=== PATIENT | female | born 1985 | race Two or more races ===

== ENCOUNTER 2017-03-25 23:10 | Emergency (ER) | payer OTHER ==
[~2017-03-25] VITALS: Ht 170.2 cm; Wt 90.7 kg
--- NOTE | 2017-03-25 23:29 | NUR ---
PATIENT CAME INTO ER VIA WHEELCHAIR. PT WAS SEEN AT [facility] YESTERDAY FOR RIGHT KNEE INJURY AND WAS GIVEN KNEE IMMOBILIZER. PATIENT CAME IN FOR C/O KNEE IMMOBILIZER "KEEP FALLING DOWN." PT IS ALERT, ORIENTED X 4, NO RESP DISTRESS NOTED OR REPORTED UPON ASSESSMENT...MD AT BEDSIDE..
--- NOTE | 2017-03-25 23:48 | NUR ---
Patient discharged to home in stable conditon. Written and verbal after care instructions given. Patient verbalizes understanding of instructions. per pt request transferred pt to her car via wheelchair...
== END 2017-03-25 23:49 | disposition home or self-care (01) ==
LOC: ER 23:21
DX: Z46.89 Encounter for fitting and adjustment of other specified devices (principal); M25.561 Pain in right knee; Z88.1 Allergy status to other antibiotic agents
CPT/HCPCS: A4663